=== PATIENT | male | born 1970 | race Two or more races ===

== ENCOUNTER 2023-10-01 12:34 | Inpatient (IN) | payer MEDICAID ==
[~2023-10-01] VITALS: Ht 170.2 cm; Wt 100.2 kg
[2023-10-01 14:19] LABS: Basophils # (auto) 0.2 10 ^3/uL (0-0.2); Basophils % (auto) 0.9 % (0.0-2.0); Eosinophils # (auto) 0 10 ^3/uL (0-0.8); Eosinophils % (auto) 0.1 % (0.0-7.0); Hematocrit 39.2 % (41.0-53.0); Hemoglobin 12.9 g/dL (13.5-17.5); Lymphocytes # (auto) 0.9 10 ^3/uL (0.4-5.4); Lymphocytes % (auto) 4.9 % (10.0-50.0); Mean Corpuscular Hemoglobin 28.8 pg (28.0-32.0); Mean Corpuscular Volume 87.1 fL (80.0-100.0); Monocytes # (auto) 1.5 10 ^3/uL (0-1.3); Monocytes % (auto) 7.9 % (0.0-12.0); Neutrophils # (auto) 16.6 10 ^3/uL (1.6-8.6); Neutrophils % (auto) 86.2 % (37.0-80.0); Red Cell Distribution Width 14.5 % (11.8-14.3); White Blood Cell 19.2 10^3/uL (4.4-10.8)
[2023-10-01 14:45] LABS: Alanine Aminotransferase 28 U/L (7-40); Albumin 3.7 g/dL (3.2-4.8); Alkaline Phosphatase 172 U/L (46-116); Anion Gap 10 (5-15); Aspartate Aminotransferase 32 U/L (13-40); Bilirubin, Total 1.4 mg/dL (0.2-1.0); Blood Urea Nitrogen 35 mg/dL (9-23); Calcium 9.1 mg/dL (8.5-10.1); Carbon Dioxide 21 mmol/L (20-30); Chloride 104 mmol/L (98-107); Glucose 270 mg/dL (74-106); Potassium 4.4 mmol/L (3.5-5.1); Sodium 135 mmol/L (136-145); Total Protein 7.1 g/dL (5.7-8.2)
[2023-10-01 14:59] LABS: Erythrocyte Sedimentation Rate 83 mm/hr (0-20)
[2023-10-01] MEDS ORDERED: HYDROcodone-ACET 5/325MG TAB PO PRN (15:45)
[2023-10-01] MEDS ORDERED: VANCOMYCIN PER PHARMACY 0 MG IV SCH (15:45)
[2023-10-01] MEDS ORDERED: MORPHINE SULFATE INJ 2 MG/ml SYRG IV PRN ×2 (15:45)
[2023-10-01] MEDS ORDERED: ONDANSETRON HCL 4 MG/2 ML VIAL IV PRN (15:45)
[2023-10-01] MEDS ORDERED: NITROGLYCERIN 0.4 MG SL TAB SL PRN (15:45)
[2023-10-01] MEDS ORDERED: ACETAMINOPHEN 500 MG TAB PO PRN (15:45)
[2023-10-01] MEDS: VANCOMYCIN 1GM/200ML 200 ML IV ONE (17:55)
[2023-10-01] MEDS: SODIUM CHLORIDE 0.9% 1,000 ML IV SCH (17:55)
[2023-10-01] MEDS: CLINDAMYCIN 900MG IV 50 ML IV ONE (19:34)
[2023-10-01] MEDS: PIPERACILLIN-TAZOB 3.375GM 100 ML IV ONE (20:26)
[2023-10-01 20:42] VITALS: RESP 20; O2SAT 96
[2023-10-02] VITALS (8 sets, daily range): BP systolic 129–161; BP diastolic 60–97; PULSE 97–115; RESP 16–20; TEMP 98.5–99.5; O2SAT 94–98
[2023-10-02] MEDS: metroNIDAZOLE 500MG/100ML 100 ML IV SCH (00:25)
[2023-10-02] MEDS: VANCOMYCIN 1GM/200ML 200 ML IV SCH (05:28)
[2023-10-02] MEDS: cefTRIAXone 1GM/50ML D5W 50 ML IV SCH (08:35)
[2023-10-02 09:11] LABS: Basophils # (auto) 0 10 ^3/uL (0-0.2); Basophils % (auto) 0.3 % (0.0-2.0); Eosinophils # (auto) 0.1 10 ^3/uL (0-0.8); Eosinophils % (auto) 0.4 % (0.0-7.0); Hematocrit 38.2 % (41.0-53.0); Hemoglobin 12.7 g/dL (13.5-17.5); Lymphocytes # (auto) 1.1 10 ^3/uL (0.4-5.4); Lymphocytes % (auto) 6.1 % (10.0-50.0); Mean Corpuscular Hemoglobin 28.8 pg (28.0-32.0); Mean Corpuscular Hgb Conc. 33.2 g/dL (32.0-36.0); Mean Corpuscular Volume 86.7 fL (80.0-100.0); Monocytes # (auto) 1.6 10 ^3/uL (0-1.3); Monocytes % (auto) 9.3 % (0.0-12.0); Neutrophils # (auto) 14.7 10 ^3/uL (1.6-8.6); Neutrophils % (auto) 83.9 % (37.0-80.0); Red Blood Cells 4.41 10^6/uL (4.5-5.90); Red Cell Distribution Width 14.6 % (11.8-14.3); White Blood Cell 17.5 10^3/uL (4.4-10.8)
[2023-10-02 09:27] LABS: Alanine Aminotransferase 20 U/L (7-40); Albumin 3.7 g/dL (3.2-4.8); Alkaline Phosphatase 150 U/L (46-116); Anion Gap 8 (5-15); Aspartate Aminotransferase 15 U/L (13-40); BUN/Creatinine Ratio 18.5 (10.0-20.0); Bilirubin, Total 1.2 mg/dL (0.2-1.0); Blood Urea Nitrogen 32 mg/dL (9-23); Calcium 9.3 mg/dL (8.5-10.1); Carbon Dioxide 22 mmol/L (20-30); Chloride 105 mmol/L (98-107); Glucose 279 mg/dL (74-106); Potassium 4.3 mmol/L (3.5-5.1); Sodium 135 mmol/L (136-145); Total Protein 7.3 g/dL (5.7-8.2)
[2023-10-02 09:34] LABS: INR 1.09 (0.9-1.15); Partial Thromboplastin Time 27.4 SEC (24.5-34.5); Prothrombin Time 11.5 sec (9.3-11.8)
[2023-10-02] MEDS: metroNIDAZOLE 500 MG TAB PO SCH (14:52)
[2023-10-02] MEDS: PIPERACILLIN-TAZOB 3.375GM 100 ML IV SCH (21:53)
[2023-10-02] MEDS: LINEZOLID 600MG/300ML 300 ML IV SCH (21:53)
[2023-10-03] VITALS (8 sets, daily range): BP systolic 107–167; BP diastolic 57–103; PULSE 92–105; RESP 17–20; TEMP 97.6–99.2; O2SAT 91–97
[2023-10-03 06:06] LABS: Basophils # (auto) 0.1 10 ^3/uL (0-0.2); Basophils % (auto) 0.5 % (0.0-2.0); Eosinophils # (auto) 0 10 ^3/uL (0-0.8); Eosinophils % (auto) 0.2 % (0.0-7.0); Hematocrit 36.7 % (41.0-53.0); Hemoglobin 12.3 g/dL (13.5-17.5); Lymphocytes # (auto) 1.8 10 ^3/uL (0.4-5.4); Lymphocytes % (auto) 9.2 % (10.0-50.0); Mean Corpuscular Hemoglobin 29.3 pg (28.0-32.0); Mean Corpuscular Hgb Conc. 33.4 g/dL (32.0-36.0); Mean Corpuscular Volume 87.5 fL (80.0-100.0); Monocytes # (auto) 1.7 10 ^3/uL (0-1.3); Monocytes % (auto) 8.4 % (0.0-12.0); Neutrophils # (auto) 16.3 10 ^3/uL (1.6-8.6); Neutrophils % (auto) 81.7 % (37.0-80.0); Red Cell Distribution Width 14.5 % (11.8-14.3)
[2023-10-03 06:13] LABS: Potassium 3.9 mmol/L (3.5-5.1)
[2023-10-03 06:15] LABS: Calcium 9.5 mg/dL (8.5-10.1)
[2023-10-03 06:20] LABS: Albumin 3.7 g/dL (3.2-4.8); BUN/Creatinine Ratio 16.9 (10.0-20.0)
[2023-10-03 07:37] LABS: Erythrocyte Sedimentation Rate 87 mm/hr (0-20)
[2023-10-04 01:54] LABS: Urine Amorphous Crystal FEW /hpf (None Seen); Urine Bacteria FEW /hpf (None Seen); Urine Blood 1+ /uL (Negative); Urine Clarity Turbid (Clear); Urine Color Yellow (Yellow); Urine Protein, UAD 2+ (Negative); Urine Specific Gravity 1.018 (1.001-1.035); Urine Urobilinogen Normal (Negative); Urine WBC 11 /hpf (0 - 3); Urine pH 5.5 (5.0-9.0)
[2023-10-04 02:08] LABS: Amphetamine Screen, Urine Neg (NEGATIVE); Barbiturate Scree,Urine Neg (NEGATIVE); Benzodiazephine Screen, Urine Neg (NEGATIVE); Cannabinoid Screen, Urine Neg (NEGATIVE); Cocaine Screen, Urine Neg (NEGATIVE); Opiate Scree,Urine Neg (NEGATIVE); Phencyclidine Screen, Urine Neg (NEGATIVE)
[2023-10-04 05:00] VITALS: BP 109/78; PULSE 92; RESP 18; TEMP 97.9; O2SAT 97
[2023-10-04 06:31] LABS: Basophils # (auto) 0.1 10 ^3/uL (0-0.2); Basophils % (auto) 0.5 % (0.0-2.0); Eosinophils # (auto) 0.1 10 ^3/uL (0-0.8); Eosinophils % (auto) 0.5 % (0.0-7.0); Hemoglobin 12.6 g/dL (13.5-17.5); Lymphocytes # (auto) 1.5 10 ^3/uL (0.4-5.4); Lymphocytes % (auto) 8.4 % (10.0-50.0); Mean Corpuscular Hemoglobin 28.7 pg (28.0-32.0); Mean Corpuscular Hgb Conc. 33.2 g/dL (32.0-36.0); Mean Corpuscular Volume 86.5 fL (80.0-100.0); Monocytes # (auto) 1.5 10 ^3/uL (0-1.3); Monocytes % (auto) 8.4 % (0.0-12.0); Neutrophils # (auto) 14.3 10 ^3/uL (1.6-8.6); Neutrophils % (auto) 82.2 % (37.0-80.0); Nucleated Red Blood Cells % 0.1 %; Red Blood Cells 4.39 10^6/uL (4.5-5.90); Red Cell Distribution Width 14.4 % (11.8-14.3)
[2023-10-04 06:45] LABS: White Blood Cell 17.4 10^3/uL (4.4-10.8)
[2023-10-04 07:41] LABS: Alanine Aminotransferase 13 U/L (7-40); Albumin 3.6 g/dL (3.2-4.8); Alkaline Phosphatase 147 U/L (46-116); Anion Gap 9 (5-15); Aspartate Aminotransferase 9 U/L (13-40); BUN/Creatinine Ratio 12.4 (10.0-20.0); Blood Urea Nitrogen 20 mg/dL (9-23); Calcium 9.3 mg/dL (8.5-10.1); Carbon Dioxide 22 mmol/L (20-30); Chloride 103 mmol/L (98-107); Glucose 252 mg/dL (74-106); Potassium 3.9 mmol/L (3.5-5.1); Sodium 134 mmol/L (136-145)
[2023-10-04 07:42] LABS: Bilirubin, Total 0.9 mg/dL (0.2-1.0); Total Protein 7.3 g/dL (5.7-8.2)
[2023-10-04 07:51] LABS: CRP High Sensitivity 14.34 mg/dL (<1.0)
[2023-10-04 08:30] VITALS: PULSE 100; PULSE 95; RESP 14
[2023-10-04 08:51] VITALS: BP 138/81; PULSE 90; RESP 18; TEMP 99.1; O2SAT 96
[2023-10-04 09:19] LABS: Erythrocyte Sedimentation Rate 86 mm/hr (0-20)
[2023-10-04] MEDS ORDERED: DEXTROSE (50%) 50ML SYRG IV PRN (12:00)
[2023-10-04 12:36] VITALS: BP 123/77; PULSE 97; RESP 18; TEMP 98; O2SAT 98
[2023-10-04] MEDS: FLORASTOR (S. BOULARDII) 250 MG CAP PO SCH (14:00)
[2023-10-04] MEDS: DIPHENOXYLATE W/ATROPINE 2.5 MG TAB PO PRN (14:00)
[2023-10-04 17:00] VITALS: BP 128/81; PULSE 75; RESP 18; TEMP 98.8; O2SAT 93
[2023-10-04] MEDS: ACCU-CHEK COMFORT CURVE STRIP VI SCH (17:26)
[2023-10-04] MEDS: InsuLIN REG 1unit/0.01ml Soln (100units/ml) SC SCH ×2 (17:38→23:27)
[2023-10-04 21:00] VITALS: BP 140/75; PULSE 93; RESP 19; TEMP 98.4; O2SAT 93
[2023-10-05] VITALS (7 sets, daily range): BP systolic 103–152; BP diastolic 70–93; PULSE 70–93; RESP 18–19; TEMP 97.4–98.6; O2SAT 94–98
[2023-10-05 07:02] LABS: Basophils # (auto) 0.1 10 ^3/uL (0-0.2); Basophils % (auto) 0.7 % (0.0-2.0); Eosinophils # (auto) 0.2 10 ^3/uL (0-0.8); Hematocrit 40.5 % (41.0-53.0); Hemoglobin 13.4 g/dL (13.5-17.5); Mean Corpuscular Hgb Conc. 33.2 g/dL (32.0-36.0); Mean Corpuscular Volume 87.2 fL (80.0-100.0); Monocytes # (auto) 1.1 10 ^3/uL (0-1.3); Monocytes % (auto) 6.8 % (0.0-12.0); Neutrophils # (auto) 13.1 10 ^3/uL (1.6-8.6); Neutrophils % (auto) 79.5 % (37.0-80.0); Red Blood Cells 4.64 10^6/uL (4.5-5.90); Red Cell Distribution Width 14.3 % (11.8-14.3); White Blood Cell 16.4 10^3/uL (4.4-10.8)
[2023-10-05 07:11] LABS: Anion Gap 12 (5-15); Calcium 9.7 mg/dL (8.7-10.4); Carbon Dioxide 24 mmol/L (20-30); Chloride 101 mmol/L (98-107); Potassium 3.7 mmol/L (3.5-5.1); Sodium 137 mmol/L (136-145)
[2023-10-05 07:17] LABS: BUN/Creatinine Ratio 11.8 (10.0-20.0); Blood Urea Nitrogen 22 mg/dL (9-23); Glucose 229 mg/dL (74-106)
[2023-10-06] VITALS (8 sets, daily range): BP systolic 125–147; BP diastolic 77–92; PULSE 84–95; RESP 16–18; TEMP 98.1–98.9; O2SAT 94–98
[2023-10-07] VITALS (8 sets, daily range): BP systolic 100–167; BP diastolic 70–102; PULSE 84–93; RESP 16–20; TEMP 98–99.7; O2SAT 93–98
[2023-10-07 17:19] LABS: Basophils # (auto) 0.1 10 ^3/uL (0-0.2); Basophils % (auto) 0.5 % (0.0-2.0); Eosinophils # (auto) 0.3 10 ^3/uL (0-0.8); Eosinophils % (auto) 2.5 % (0.0-7.0); Hematocrit 40.5 % (41.0-53.0); Hemoglobin 13.2 g/dL (13.5-17.5); Lymphocytes # (auto) 1.6 10 ^3/uL (0.4-5.4); Lymphocytes % (auto) 14.2 % (10.0-50.0); Mean Corpuscular Hemoglobin 28.4 pg (28.0-32.0); Mean Corpuscular Hgb Conc. 32.7 g/dL (32.0-36.0); Mean Corpuscular Volume 86.7 fL (80.0-100.0); Monocytes # (auto) 0.9 10 ^3/uL (0-1.3); Monocytes % (auto) 8.2 % (0.0-12.0); Neutrophils # (auto) 8.5 10 ^3/uL (1.6-8.6); Neutrophils % (auto) 74.6 % (37.0-80.0); Red Blood Cells 4.67 10^6/uL (4.5-5.90); Red Cell Distribution Width 14.4 % (11.8-14.3); White Blood Cell 11.3 10^3/uL (4.4-10.8)
[2023-10-07 17:31] LABS: Chloride 102 mmol/L (98-107); Potassium 3.5 mmol/L (3.5-5.1); Sodium 136 mmol/L (136-145)
[2023-10-07 17:32] LABS: Anion Gap 7 (5-15); Carbon Dioxide 27 mmol/L (20-30)
[2023-10-07 17:33] LABS: Calcium 9.2 mg/dL (8.5-10.1)
[2023-10-07 17:37] LABS: Glucose 247 mg/dL (74-106)
[2023-10-07 17:38] LABS: BUN/Creatinine Ratio 8.6 (10.0-20.0); Blood Urea Nitrogen 13 mg/dL (9-23)
[2023-10-07] MEDS: Juven Orange Powder PACKET 27.5gm PO SCH (18:00)
[2023-10-07] MEDS: metroNIDAZOLE 500 MG TAB PO SCH (21:10)
[2023-10-07] MEDS ORDERED: metroNIDAZOLE 500MG/100ML 100 ML IV SCH (22:00)
[2023-10-08] VITALS (9 sets, daily range): BP systolic 135–165; BP diastolic 84–101; PULSE 67–97; RESP 16–20; TEMP 97.8–98.8; O2SAT 84–100
[2023-10-08] MEDS: ceFAZolin 2 GM/D5W50ml 50 ML IV ONE (06:53)
[2023-10-08] MEDS: LIDOCAINE 1% HCL (LOCAL ANESTH.) INJ 20ML MDV ONE (06:53)
[2023-10-08] MEDS: BUPIVACAINE 0.5% P/F INJ 10 ML VIAL ONE (06:59)
[2023-10-08 07:29] LABS: INR 1.08 (0.9-1.15); Partial Thromboplastin Time 27.2 SEC (24.5-34.5); Prothrombin Time 11.4 sec (9.3-11.8)
[2023-10-08] MEDS ORDERED: ONDANSETRON HCL 4 MG/2 ML VIAL ONE (07:35)
[2023-10-08] MEDS ORDERED: LIDOCAINE 2% (LOCAL ANESTH.) PF 5ml SDV ONE (07:35)
[2023-10-08] MEDS ORDERED: PROPOFOL 10 MG/ML 20 ML IV ONE (07:35)
[2023-10-08] MEDS ORDERED: MIDAZOLAM HCL 2MG/2ML 2ml VIAL (1mg/ml) ONE (07:35)
[2023-10-08] MEDS ORDERED: fentaNYL CITRATE 100 MCG/2 ML VL ONE (07:35)
[2023-10-08] MEDS: ONDANSETRON HCL 4 MG/2 ML VIAL IV ONE (08:30)
[2023-10-08] MEDS: cefTRIAXone 1GM/50ML D5W 50 ML IV SCH (09:02)
[2023-10-09 01:00] VITALS: BP 114/72; PULSE 89; RESP 18; TEMP 98.6; O2SAT 92
[2023-10-09 05:00] VITALS: BP 134/80; PULSE 89; RESP 18; TEMP 98.3; O2SAT 95
[2023-10-09 05:45] LABS: Basophils # (auto) 0.1 10 ^3/uL (0-0.2); Basophils % (auto) 0.6 % (0.0-2.0); Eosinophils # (auto) 0.3 10 ^3/uL (0-0.8); Eosinophils % (auto) 3.2 % (0.0-7.0); Hematocrit 35.1 % (41.0-53.0); Hemoglobin 11.8 g/dL (13.5-17.5); Lymphocytes # (auto) 1.9 10 ^3/uL (0.4-5.4); Lymphocytes % (auto) 20.4 % (10.0-50.0); Mean Corpuscular Hgb Conc. 33.6 g/dL (32.0-36.0); Mean Corpuscular Volume 86.4 fL (80.0-100.0); Monocytes # (auto) 0.7 10 ^3/uL (0-1.3); Monocytes % (auto) 7.4 % (0.0-12.0); Neutrophils # (auto) 6.4 10 ^3/uL (1.6-8.6); Neutrophils % (auto) 68.4 % (37.0-80.0); Red Blood Cells 4.06 10^6/uL (4.5-5.90); Red Cell Distribution Width 14.4 % (11.8-14.3); White Blood Cell 9.3 10^3/uL (4.4-10.8)
[2023-10-09 06:19] LABS: Anion Gap 8 (5-15); Calcium 8.9 mg/dL (8.5-10.1); Carbon Dioxide 26 mmol/L (20-30); Chloride 105 mmol/L (98-107); Potassium 3.5 mmol/L (3.5-5.1); Sodium 139 mmol/L (136-145)
[2023-10-09 06:25] LABS: BUN/Creatinine Ratio 10.5 (10.0-20.0); Blood Urea Nitrogen 16 mg/dL (9-23); Glucose 165 mg/dL (74-106)
[2023-10-09 09:00] VITALS: BP 137/92; PULSE 90; RESP 18; TEMP 98; O2SAT 95
[2023-10-09 13:00] VITALS: BP 130/79; PULSE 80; RESP 18; TEMP 98.4; O2SAT 95
[2023-10-09 17:00] VITALS: BP 117/94; PULSE 101; RESP 18; TEMP 98.2; O2SAT 96
[2023-10-09 20:00] VITALS: BP 119/81; PULSE 68; PULSE 99; RESP 18; TEMP 98; O2SAT 100; O2SAT 97
[2023-10-10] VITALS: BP 124/81; PULSE 99; RESP 16; TEMP 98.2; O2SAT 97
[2023-10-10 09:00] VITALS: BP 154/96; PULSE 91; RESP 17; TEMP 98.3; O2SAT 95
[2023-10-10] MEDS: DAKINS QUARTER STR 0.125% (NaHypochlorite) 473 ML TOPICAL SOL TOP SCH (10:13)
[2023-10-10 14:41] VITALS: BP 151/89; PULSE 92; RESP 17; TEMP 98.2; O2SAT 97
[2023-10-10 16:38] VITALS: BP 131/88; PULSE 90; RESP 17; TEMP 98.3; O2SAT 93
[2023-10-10 20:00] VITALS: PULSE 105; RESP 22; O2SAT 97
[2023-10-10 21:00] VITALS: BP_SYST 149; BP_SYST 171; BP_DIAS 78; BP_DIAS 94; PULSE 105; PULSE 85; RESP 20; RESP 22; TEMP 97.7; TEMP 99; O2SAT 94; O2SAT 97
[2023-10-11] VITALS (9 sets, daily range): BP systolic 129–186; BP diastolic 69–109; PULSE 86–99; RESP 17–20; TEMP 98–98.6; O2SAT 94–98
[2023-10-11 07:24] LABS: Basophils # (auto) 0.1 10 ^3/uL (0-0.2); Basophils % (auto) 0.8 % (0.0-2.0); Eosinophils # (auto) 0.4 10 ^3/uL (0-0.8); Eosinophils % (auto) 4.1 % (0.0-7.0); Hematocrit 35.8 % (41.0-53.0); Hemoglobin 11.8 g/dL (13.5-17.5); Lymphocytes # (auto) 2.1 10 ^3/uL (0.4-5.4); Lymphocytes % (auto) 24.6 % (10.0-50.0); Mean Corpuscular Hemoglobin 28.8 pg (28.0-32.0); Mean Corpuscular Hgb Conc. 33.1 g/dL (32.0-36.0); Monocytes # (auto) 0.6 10 ^3/uL (0-1.3); Monocytes % (auto) 7.2 % (0.0-12.0); Neutrophils # (auto) 5.4 10 ^3/uL (1.6-8.6); Neutrophils % (auto) 63.3 % (37.0-80.0); Red Blood Cells 4.11 10^6/uL (4.5-5.90); Red Cell Distribution Width 14.3 % (11.8-14.3); White Blood Cell 8.6 10^3/uL (4.4-10.8)
[2023-10-11 07:49] LABS: Chloride 105 mmol/L (98-107); Potassium 3.8 mmol/L (3.5-5.1); Sodium 136 mmol/L (136-145)
[2023-10-11 07:50] LABS: Anion Gap 4 (5-15); Calcium 8.8 mg/dL (8.5-10.1); Carbon Dioxide 27 mmol/L (20-30)
[2023-10-11 07:55] LABS: Glucose 218 mg/dL (74-106)
[2023-10-11 12:25] LABS: BUN/Creatinine Ratio 17.9 (10.0-20.0); Blood Urea Nitrogen 25 mg/dL (9-23)
[2023-10-11] MEDS ORDERED: METR-344 PO (13:10)
[2023-10-12] VITALS (7 sets, daily range): BP systolic 118–154; BP diastolic 67–88; PULSE 72–103; RESP 16–19; TEMP 97.8–98.4; O2SAT 93–98
[2023-10-13] VITALS (7 sets, daily range): BP systolic 118–154; BP diastolic 68–109; PULSE 88–106; RESP 16–20; TEMP 97.7–98.3; O2SAT 96–100
[2023-10-14 01:00] VITALS: BP 130/78; PULSE 93; RESP 20; TEMP 97; O2SAT 95
[2023-10-14 05:00] VITALS: BP 115/71; PULSE 92; RESP 20; TEMP 98.1; O2SAT 94
[2023-10-14 08:00] VITALS: PULSE 100
[2023-10-14 09:00] VITALS: BP 118/80; PULSE 98; RESP 20; TEMP 98; O2SAT 98
[2023-10-14 13:00] VITALS: BP 129/84; PULSE 101; RESP 20; TEMP 98.1; O2SAT 95
[2023-10-14 14:10] VITALS: TEMP 36.7
== END 2023-10-14 14:59 | DRG 710 ==
LOC: ER 12:34 → TELE 15:57 → WEST WING 15:57 → TELE-WESTW 23:09 → WEST WING 10-04 23:06
PROVIDERS: ADMIT Internal Medicine; ATTEND Internal Medicine
PROC: 0Y6T0Z0 Detachment at Right 3rd Toe, Complete, Open Approach (ICD-10-PCS; 2023-10-08)
PROC: 0JBQ0ZZ Excision of Right Foot Subcutaneous Tissue and Fascia, Open Approach (ICD-10-PCS; 2023-10-08)
PROC: 0Y6R0Z0 Detachment at Right 2nd Toe, Complete, Open Approach (ICD-10-PCS; principal; 2023-10-08 07:30)
PROC: 05HB33Z Insertion of Infusion Device into Right Basilic Vein, Percutaneous Approach (ICD-10-PCS; 2023-10-11)
PROC: B54MZZA Ultrasonography of Right Upper Extremity Veins, Guidance (ICD-10-PCS; 2023-10-11)
DX: A41.9 Sepsis, unspecified organism (principal); N17.0 Acute kidney failure with tubular necrosis; I50.23 Acute on chronic systolic (congestive) heart failure; E11.52 Type 2 diabetes mellitus with diabetic peripheral angiopathy with gangrene; L03.115 Cellulitis of right lower limb; E11.22 Type 2 diabetes mellitus with diabetic chronic kidney disease; D64.9 Anemia, unspecified; L97.419 Non-pressure chronic ulcer of right heel and midfoot with unspecified severity; M86.8X7 Other osteomyelitis, ankle and foot; I13.0 Hypertensive heart and chronic kidney disease with heart failure and stage 1 through stage 4 chronic kidney disease, or unspecified chronic kidney disease; E66.9 Obesity, unspecified; N18.9 Chronic kidney disease, unspecified; E11.69 Type 2 diabetes mellitus with other specified complication; E11.628 Type 2 diabetes mellitus with other skin complications; L02.611 Cutaneous abscess of right foot; E11.40 Type 2 diabetes mellitus with diabetic neuropathy, unspecified; E11.621 Type 2 diabetes mellitus with foot ulcer; Z88.6 Allergy status to analgesic agent; Z68.35 Body mass index [BMI] 35.0-35.9, adult; Z91.199 Patient's noncompliance with other medical treatment and regimen due to unspecified reason; Z83.3 Family history of diabetes mellitus; Z80.3 Family history of malignant neoplasm of breast; Z68.34 Body mass index [BMI] 34.0-34.9, adult
CPT/HCPCS: 36415; 71045; 73700; 73718; 80048; 80053; 80069; 80307; 81001; 82962; 83036; 83605; 83880; 84484; 85025; 85379; 85610; 85652; 85730; 86141; 86850; 86900; 86901; 87040; 87075; 87205; 93306; 93926; 93970; 97110; 97116; 97163; G0378; J1815; J2001; J2250; J2405; J2543; J2704; J3490

== ENCOUNTER 2024-04-09 08:32 | Emergency (ER) | payer MEDICAID ==
[~2024-04-09] VITALS: Ht 170.2 cm; Wt 91.4 kg
[~2024-04-09 08:32] MED LIST: METR-344 PO
[2024-04-09 09:00] VITALS: BP 104/75; PULSE 79; RESP 18; TEMP 97.9; O2SAT 96
[2024-04-09] MEDS: TETANUS-DIPTH-ACEL PERTUSSIS 0.5ML SYR Tdap IM ONE (09:21)
--- NOTE | 2024-04-09 09:48 | ED.PDOC ---
History of Present Illness HPI Comments 54 y/o M, with a Hx of DM, HLD, HTN, PAD, CHF and obesity, presents with c/o split laceration wound to 1st toe and bruising to 1st and 2nd digit on left foot with associated pain s/p injury today. Patient reports injuring his foot after he accidentally "kicked a door" last night. 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 He is unsure of his last tetanus shot at time of assessment. He denies having any weakness, numbness, tingling, radiating pain, fever, chills, or other associated symptoms or modifiers at this time. Chief Complaint: Lower Extremity Time Seen by MD: 08:55 Reviewed Notes: Nurses Notes, Medications, Allergies Allergies: Coded Allergies: Aspirin (Verified Allergy, Unknown, 10/01/23) Home Meds Active Scripts Bacitracin (Bacitracin Oint) 1 Applic Ap, 1 APPLIC TOP TID, #30 GRAMS Prov:NGOZI SONG MD 04/09/24 Cephalexin Monohydrate (Cephalexin) 500 Mg Cap, 1 CAP PO TID for 10 Days, #30 CAP Prov:NGOZI SONG MD 04/09/24 Sulfamethoxazole W/Trimethopri (Bactrim Ds Tablet) 1 Tab Tb, 1 TAB PO BID for 10 Days, #20 TAB Prov:NGOZI SONG MD 04/09/24 Ibuprofen Micronized (Ibuprofen) 800 Mg Tab, 800 MG PO Q8HP PRN, #30 TAB prn pain, take with food Prov:NGOZI SONG MD 04/09/24 Metronidazole (Flagyl) 500 Mg Tab, 1 TAB PO BID for 28 Days, #56 TAB Prov:YARITZA PEPE NP 10/11/23 Mode of Arrival: Ambulatory Past Medical History PAST MEDICAL HISTORY: CHF, DM, High Lipids, HTN, PAD Past Medical History (Other): obesity Surgical History (Other): 2nd and 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-toe amputation Family History Family History: Reviewed,noncontributory to illness, No family hx of Cancer, No family hx of DM, No family hx of Heart madhu, No family hx of HTN, No family hx ofKidney madhu, No family hx of Liver madhu, No family hx of Lung madhu, No family hx of Stroke Social History Smoker: Non-Smoker Alcohol: Denies ETOH Use Drugs: Denies Drug Use Lives In: Home Musculoskeletal: reports: others (left foot pain secondary to 1st and 2nd digit injury) Integumetry: reports: bruises (bruising to 1st and 2nd digit on left foot), laceration (split laceration to 1st digit on left foot) All Other Systems: Reviewed and Negative (negative unless otherwise stated above or in HPI) Physical Exam General Appearance: No Apparent Distress HEENT: Other (Unremarkable) Neck: Full Range of Motion, Normal Inspection Respiratory: No Accessory Muscle Use, No Respiratory Distress Cardiovascular: No Edema, No JVD Breast Exam: Deferred Gastrointestinal: Other (Nondistended) Genitalia: Deferred Pelvic: Deferred Rectal: Deferred Extremities: Other (Left great toe approximate 4 mm superficial split laceration medial/distal aspect, diffuse soft tissue swelling and bruising of the great toe and 2nd toe with tenderness.) Neurologic: Alert (Oriented x4), Normal Affect, Normal Mood, Other (Ambulatory without difficulty. No gross focal deficit.) Cerebellar Function: NOT DONE Reflexes: NOT DONE Skin: Dry, Warm, Other (Left 1st and 2nd toe soft tissue swelling and bruising. 4 mm splint laceration left 1st toe distal medial aspect) Lymphatic: NOT DONE Was a procedure done? Was a procedure done?: No Differential Dx Considerations may include: fracture, dislocation, contusion, bruising, laceration, among others X-Ray, Labs, Meds, VS Vital Signs Date Time Temp Pulse Resp B/P (MAP) Pulse Ox O2 Delivery O2 Flow Rate FiO2 04/09/24 09:00 79 18 96 Room Air 04/09/24 09:00 97.9 79 18 104/75 (85) 96 97.9 04/09/24 08:48 97.9 79 18 104/75 (85) 96 Current Medications Medications (Trade) Dose Ordered Sig/Rosendo Route Start Time Stop Time Status Last Admin Diphtheria/ Tetanus/Acell Pertussis (Boostrix T-Dap) 0.5 ml ONCE ONCE IM 04/09/24 09:15 04/09/24 09:16 DC 04/09/24 09:[address] [address] Ph: [phone] DIAGNOSTIC IMAGING Diagnostic Imaging Report : [id number] Signed PATIENT: ERIK MENDOZA ACCT: [id number] UNIT: [id number] : 1970 LOC: ER ROOM / BED: / AGE / SEX: 54 / M ADM STATUS: REG ER SERVICE 8 ORDERING PHYSICIAN: NGOZI SONG MD PROCEDURE(s): LFOOT - L FOOT 3 VIEW XRAY REASON: trauma ORDER NUMBER(s): [id number], ACCESSION NUMBER(s): [id number] CLINICAL INFORMATION: 54 years old, Male; trauma. TECHNIQUE: 3 views of the left foot were obtained. COMPARISON: None FINDINGS: Thin linear lucencies at the base of the distal phalanx of the great toe, suspected acute, comminuted fracture with fracture planes extending to the articular surface of the interphalangeal joint. Moderate soft tissue swelling in the great toe. Dense arterial calcification. IMPRESSION: Acute fracture of the distal phalanx of the great toe. ATED BY: ART SAGE DO DICTATED DATE/TIME: 04/09/24943 SIGNED BY: ART SAGE DO SIGNED DATE/TIME: 04/09/24943 CC: X-Ray, Labs, Meds, VS Comment 54-year-old male with history of diabetes and previous osteomyelitis complaining of left 1st and 2nd toe injuries after kicking a door Vitals unremarkable Exam remarkable for left great toe and 2nd toe diffuse soft tissue swelling and bruising. Superficial split laceration approximately 4 mm distal aspect of left great toe Left foot x-rays: IMPRESSION: Acute fracture of the distal phalanx of the great toe. Patient treated with the following in the ED: [place] 5/325 mg p.o., Tdap 0.5 mL IM, Rocephin 1 g IM The wound was irrigated with copious amounts of normal saline/Betadine solution under high pressure, then bacitracin ointment was applied. The left great toe was pam-taped to the 2nd toe. Patient was provided with an orthopedic shoe for ambulation. On re-evaluation, patient stated he was not in discomfort. Vitals were stable. Patient advised regarding workup findings, my impression, treatment plan and follow up recommendations, specifically to follow up with his primary physician in 1-2 days for wound check and referral to an orthopedist. Alternatively, he may follow up with Dr. Arizmendi directly. Rx Bactrim, Keflex, bacitracin, ibuprofen Time of 1ST Reevaluation: 09:25 Reevaluation 1ST: Unchanged Time of 2ND Reevaluation: 10:40 Reevaluation 2ND: Improved Patient Education/Counseling: Diagnosis, Treatment Family Education/Counseling: No Family Present Comments I reviewed the following notes from patient's past medical encounters: admission discharge summary on 10/11/23 The following tests were ordered, and results were reviewed by me: left foot X- ray I reviewed and agreed with the following test results read by other providers: left foot X-ray I discussed treatment and results with medical personnel Departure 1 Departure Time of Disposition: 10:40 Impression: Primary Impression: Toe fracture, left Qualified Codes: S92.425B - Nondisplaced fracture of distal phalanx of left great toe, initial encounter for open fracture Disposition: HOME / SELF CARE / HOMELESS Condition: Stable Referrals: GIULIA ARIZMENDI MD Additional Instructions: Your x-rays show you have a broken bone in your big toe. I have prescribed pain medication and antibiotics to prevent infection. Follow up with your primary doctor in 1-2 days for wound check and referral to an orthopedist for further evaluation of your toe fracture. Alternatively, follow up directly with Dr. Arizmendi. e-Prescriptions Bacitracin (Bacitracin Oint) 1 Applic Ap 1 APPLIC TOP TID, #30 GRAMS Prov: NGOZI SONG MD 04/09/24 Cephalexin Monohydrate (Cephalexin) 500 Mg Cap 1 CAP PO TID for 10 Days, #30 CAP Prov: NGOZI SONG MD 04/09/24 Sulfamethoxazole W/Trimethopri (Bactrim Ds Tablet) 1 Tab Tb 1 TAB PO BID for 10 Days, #20 TAB Prov: NGOZI SONG MD 04/09/24 Ibuprofen Micronized (Ibuprofen) 800 Mg Tab 800 MG PO Q8HP PRN, #30 TAB prn pain, take with food Prov: NGOZI SONG MD 04/09/24 Discharged With: Relative Critical Care Note Critical Care Time?: No Stability Stability form required: No Heart Score Heart Score: Heart Score Response (Comments) Value History N/A 0 EKG N/A 0 Age N/A 0 Risk Factors N/A 0 Troponin N/A 0 Total 0 I personally scribed for NGOZI SONG MD ([email or web address]) on 04/09/24 at 09:48. Electronically submitted by Jake Ghotra ([email or web address]). I personally scribed for NGOZI SONG MD ([email or web address]) on 04/09/24 at 09:53. Electronically submitted by Jake Ghotra ([email or web address]). NGOZI SONG MD Apr 09, 2024 09:48
[2024-04-09] MEDS ORDERED: CEPH500C PO (10:43)
[2024-04-09] MEDS ORDERED: IBUP-1455 PO (10:43)
[2024-04-09] MEDS ORDERED: BAC09TP TOP (10:43)
[2024-04-09] MEDS ORDERED: BACDST PO (10:43)
[2024-04-09] MEDS ORDERED: cefTRIAXone SOD 1,000 MG VL IM ONE (10:45)
[2024-04-09] MEDS ORDERED: HYDROcodone-ACET 5/325MG TAB PO ONE (10:45)
[2024-04-09] MEDS ORDERED: BACITRACIN TOP OINT 1 UD PKG TOP ONE (10:45)
[2024-04-09] MEDS: HYDROcodone-ACET 5/325MG TAB PO ONE (11:19)
[2024-04-09] MEDS: BACITRACIN TOP OINT 1 UD PKG TOP ONE (11:19)
[2024-04-09] MEDS: cefTRIAXone SOD 1,000 MG VL IM ONE (11:19)
== END 2024-04-09 10:46 | disposition home or self-care (01) ==
LOC: ER 08:32
DX: S92.422A Displaced fracture of distal phalanx of left great toe, initial encounter for closed fracture (principal); S90.122A Contusion of left lesser toe(s) without damage to nail, initial encounter; I11.0 Hypertensive heart disease with heart failure; I50.9 Heart failure, unspecified; E11.9 Type 2 diabetes mellitus without complications; E78.5 Hyperlipidemia, unspecified; E66.9 Obesity, unspecified; Z68.31 Body mass index [BMI] 31.0-31.9, adult; Z88.6 Allergy status to analgesic agent; Z98.890 Other specified postprocedural states; Z79.899 Other long term (current) drug therapy; W22.09XA Striking against other stationary object, initial encounter; Y93.89 Activity, other specified; Y92.89 Other specified places as the place of occurrence of the external cause; Y99.8 Other external cause status
CPT/HCPCS: 73630; 90471; 90715; 96372; 99284; J0696